=== PATIENT | female | born 1960 | race Hispanic/Latino ===

== ENCOUNTER 2019-06-20 09:46 | Outpatient (CLI) | payer BC ==
--- NOTE | 2019-06-20 13:01 | Ultrasound Report ---
RENAL ULTRASOUND HISTORY: ACUTE KIDNEY FAILURE,UNSPECIFIED(N17.9) COMPARISON: None. TECHNIQUE: Multiple real-time ultrasonographic grayscale images were obtained of the kidneys and urin deonte bladder. FINDINGS: Right kidney: Moderate diffuse increased echogenicity of the kidney. The renal collecting system and ureter are nondilated. No renal mass, calculus or cyst. Kidney measures 10.2 cm. Left kidney: Moderate diffuse increased echogenicity of the kidney. The renal collecting system and u reter are nondilated. No renal mass, calculus or cyst. A prominent fracture mid of the lower pole. Ki dney measures 10.5 cm. Urinary bladder: No significant abnormality. No bladder mass or calculus. Additional findings: No ascites. IMPRESSION: 1. Moderate increased echogenicity of the kidneys consistent with medical renal disease. 2. No hydronephrosis. Signer Name: Diomedes Rodriguez MD Signed: 06/20/2019 12:57 PM Workstation Name: [id number]
== END 2019-06-20 09:47 | disposition home or self-care (01) ==
LOC: US 09:46
PROVIDERS: ATTEND Specialist
DX: N17.9 Acute kidney failure, unspecified (principal)
CPT/HCPCS: 76770